=== PATIENT | female | born 1985 | race Caucasian/White ===

== ENCOUNTER → 2018-01-08 | Outpatient (CLI) | payer OTHER | LOC: BMCIMAGING 10:17 | PROVIDERS: ATTEND Family Medicine | DX: S99.921A Unspecified injury of right foot, initial encounter (principal) ==

== ENCOUNTER 2018-03-05 20:52 | Emergency (ER) | payer OTHER ==
--- NOTE | 2018-03-05 21:47 | EDPHY ---
H & P Stated Complaint: Headache behind R ear, dehydrated Time Seen by Provider: 03/05/18 21:47 - Personal History LMP (Females 10-55): 8-14 Days Ago Current Tetanus Diphtheria and Acellular Pertussis (TDAP): Yes Tetanus Vaccine Date: 2015 - Medical/Surgical History Hx Asthma: No Hx Chronic Respiratory Disease: No Hx Diabetes: No Hx Cardiac Disease: No Hx Renal Disease: No Hx Cirrhosis: No Hx Alcoholism: No Hx HIV/AIDS: No Hx Splenectomy or Spleen Trauma: No Other PMH: Anxiety - Social History Smoking Status: Never smoked Constitutional: Initial Vital Signs Temperature (C) 36.7 C 03/05/18 20:58 Heart Rate 88 03/05/18 20:58 Respiratory Rate 19 03/05/18 20:58 Blood Pressure 119/70 03/05/18 20:58 O2 Sat (%) 97 03/05/18 20:58 O2 Delivery Mode Room Air Allergies/Adverse Reactions: DUST Allergy (Uncoded 01/23/16 22:03) Home Medications: Medication Instructions Recorded FLUoxetine [Prozac 20 MG (*)] 20 mg PO DAILY 01/24/16 Docusate Sodium [Colace 100 MG (*)] 100 mg PO BID PRN #0 cap 01/26/16 Ibuprofen [Motrin (*)] 600 mg PO Q6 PRN #0 tab 01/26/16 Medical Decision Making ED Course/Re-evaluation: CHIEF COMPLAINT: Headache, dizziness HISTORY OF PRESENT ILLNESS: This patient is a 32 year old female who complains of headache and dizziness. She does not get headaches usually, but she has had this right-sided tension pain headache more frequently for the past several weeks. These are associated with nausea. Last week, she had the same headache come on suddenly with intense pain. Today, she had a similar headache but with slow onset. Around 7:30 she developed dizziness and fell. Her encouraged her to come to the emergency department. She denies any recent head trauma. Denies history of migraines or evaluation by a neurologist. No fever, vomiting, numbness or tingling in her extremities, difficulty with speech, weakness or other associated symptoms. REVIEW OF SYSTEMS: A comprehensive 10 system review of systems is otherwise negative aside from elements mentioned in the history of present illness and medical decision making. PHYSICAL EXAM: HR, BP, O2 Sat, RR. Temp noted General Appearance: Alert, well hydrated, appropriate, and non-toxic appearing. Head: Atraumatic without scalp tenderness or obvious injury Eyes: Pupils equal, round, reactive to light and accommodation, EOMI, no trauma , no injection. Ears: Clear bilaterally, no perforation, normal landmarks Nose: Atraumatic, no rhinorrhea, clear. Throat: There is no erythema or exudates, no lesions, normal tonsils, mucus membranes moist. Neck: Supple, 2+ carotid upstroke, nontender, no lymphadenopathy. Respiratory: No retractions, no distress, no wheezes, and no accessory muscle use. Lungs are clear to auscultation bilaterally. Cardiovascular: Regular rate and rhythm, no murmurs, rubs, or gallops. Bilateral carotid, radial, dorsalis pedis, and posterior tibial pulses intact. Good capillary refill all extremities. Gastrointestinal: Abdomen is soft, nontender, non-distended, no masses, no rebound, no guarding, no peritoneal signs. Musculoskeletal: Normal active ROM of all extremities, atraumatic. Neurological: Alert, appropriate, and interactive. The patient has normal DTRs and non-focal cranial nerves, motor, sensory, and cerebellar exam. Skin: No rashes, good turgor, no nodules on palpation. Past medical history: Anxiety Past surgical history: Noncontributory Family history: Noncontributory Social history: . Friend at bedside. Does not abuse tobacco, drugs, or alcohol. DIFFERENTIAL DIAGNOSIS: The differential diagnosis for the patient's headache included but was not limited to subarachnoid hemorrhage, migraine headache, tension headache and infectious causes such as meningitis, pharyngitis and sinusitis. MEDICAL DECISION MAKIN32 y/o female presents with headache with associated dizziness which resulted in a fall. Plan for CT head. Plan to administer 30mg IV Toradol and 1L IV NS for symptom relief. Reviewed CT. No evidence of acute intracranial processes. 22:[address] Campbell, radiologist. CT head negative for acute processes. Reassessed patient. Discussed imaging results. Plan to discharge home in good condition. Referral to neurology given. Follow up and return precautions discussed. She is comfortable with this plan. - Data Points Medications Given: Discontinued Medications Sodium Chloride (Ns) 1,000 mls @ 0 mls/hr IV ONCE ONE PRN Reason: Wide Open Stop: 03/05/18 22:16 Last Admin: 03/05/18 22:18 Dose: 1,000 mls Ketorolac Tromethamine (Toradol) 30 mg IVP EDNOW ONE Stop: 03/05/18 22:15 Last Admin: 03/05/18 22:19 Dose: 30 mg Departure - Departure Disposition: Home, Routine, Self-Care Clinical Impression: Headache Qualifiers: Headache type: unspecified Headache chronicity pattern: acute headache Intractability: not intractable Qualified Code(s): R51 - Headache Condition: Good Instructions: Acute Headache (ED) Additional Instructions: 1. Follow up with your primary care provider. We have provided a referral to neurology as well should symptoms persist. 2. Return to the emergency department for severe pain, vomiting, fainting, chest pain, shortness of breath, fever, or other worsening of condition. Referrals: Kenny Edge MD [Medical Doctor] - As per Instructions Report Scribed for: Preet Jin Report Scribed by: Nila Hickey Date of Report: 03/05/18 Time of Report: 22:00
[2018-03-05] MEDS ORDERED: KETOROLAC 30 MG/1 ML SDV IVP ONE (22:14)
[2018-03-05] MEDS ORDERED: NS 1,000 ML IV ONE (22:15)
[2018-03-05 22:23] VITALS: BP 122/73
== END 2018-03-05 22:50 | disposition home or self-care (01) ==
DX: R51 Headache (principal)
CPT/HCPCS: 96374; J1885